=== PATIENT | male | born 2000 | race Caucasian/White ===

== ENCOUNTER 2019-08-29 21:45 | Emergency (ER) | payer BC ==
[~2019-08-29] VITALS: Ht 182.8 cm; Wt 104.3 kg
[~2019-08-29 21:45] MED LIST: ROBITUSSIN DM 105 ML PO; SEPTRA 200 MG/100 ML PO
[2019-08-29] MEDS ORDERED: MUCINEX ER600 MG PO (23:29)
== END 2019-08-29 23:40 | disposition home or self-care (01) ==
LOC: ED 21:45
DX: R05 Cough (principal); R09.81 Nasal congestion; R51 Headache; R07.81 Pleurodynia; F17.200 Nicotine dependence, unspecified, uncomplicated

== ENCOUNTER 2019-09-04 09:15 | Emergency (ER) | payer BC ==
[~2019-09-04] VITALS: Ht 182.8 cm; Wt 104.3 kg
[~2019-09-04 09:15] MED LIST changes: +MUCINEX ER600 MG PO
[2019-09-04] MEDS ORDERED: MEDROL DOSEPAK4 MG PO (09:35)
== END 2019-09-04 09:45 | disposition home or self-care (01) ==
LOC: ED 09:15
DX: L50.9 Urticaria, unspecified (principal); Z91.048 Other nonmedicinal substance allergy status